=== PATIENT | female | born 1950 | race Caucasian/White ===

== ENCOUNTER 2024-06-24 08:58 | Outpatient (AMB) | payer MEDICARE, OTHER, SELFPAY ==
--- OUTSIDE RECORDS SUMMARY | 2024-06-24 09:06 | XMS_ITS | Clinical Summary ---
Author Organization [facility] [address] [facility] Address [address] [place] [address] Phone Care Team Providers Care Imaging Account Manager Name Role Phone Abhinav Caban MD Primary Care Provider [phone] Allergies Active Allergy Reactions Criticality Noted Date Comments Chlorthalidone 10/03/2023 Chlorthalidone 04/11/2024 Pollen Extracts Other,Sneezing 05/22/2024 Medications verapamil ER (VERELAN) 180 mg 24 hr capsule TAKE 1 CAPSULE AT BEDTIME Do not crush or chew. Active warfarin (COUMADIN) 4 mg tablet TAKE 2 TO 3 TABLETS DAILY DIRECTED BY [facility]. Active amoxicillin (AMOXIL) 500 mg capsule TAKE 4 CAPSULES BY MOUTH 1 HOUR PRIOR TO DENTAL WORK Active levothyroxine (SYNTHROID, LEVOTHROID) 112 mcg tablet Take 1 Tablet by mouth daily. 6 times a week, none on the 7th day Active FERROUS SULFATE ORAL Take by mouth every other day Active enoxaparin (LOVENOX) 60 mg/0.6 mL syringe Active cyanocobalamin (VITAMIN B-12) 1,000 mcg tablet Take by mouth daily. Active calcium carbonate/vitami n D3 (CALCIUM CARBONATE-VITAMI N D PO) Calcium Carbonate-Vit D-Min (Caltrate 600+D Plus Minerals) 600-800 MG-UNIT Chew Tab Take by mouth Active buPROPion XL (WELLBUTRIN XL) 300 mg 24 hr tablet Take 300 mg by mouth every morning. Do not crush, chew, or split. Active cetirizine (ZyrTEC) 10 mg tablet Take 10 mg by mouth daily Active fluticasone propionate (FLONASE) 50 mcg/actuation nasal spray 2 Sprays by Each Nare route daily. Shake gently. Before first use, prime pump. After use, clean tip and replace cap. Active diphenhydrAMINE- acetaminophen (TYLENOL PM) 25-500 mg per tablet Take by mouth as needed Active gabapentin (NEURONTIN) 300 mg capsule Take 1 Capsule by mouth daily Active atorvastatin (LIPITOR) 80 mg tablet Take 80 mg by mouth daily Active polyethylene glycol 3350 (MIRALAX ORAL) Polyethylene Glycol 3350 (MIRALAX OR) Take by mouth as needed Active omeprazole (PriLOSEC) [address] capsule TAKE 1 CAPSULE TWICE A DAY (NEED APPOINTMENT FOR FURTHER REFILLS) 180 capsule 3 04/17/20 24 Active carvediloL (COREG) 3.125 mg tablet Take 1 tablet (3.125 mg total) by mouth 2 (two) times a day with meals. 180 each 1 04/30/20 24 025 Active verapamil ER (VERELAN) 180 mg 24 hr capsule TAKE 1 CAPSULE AT BEDTIME 12/24/19 24 Active warfarin (COUMADIN) 4 mg tablet TAKE 2 TO 3 TABLETS DAILY [facility] 09/24/19 24 Active amoxicillin (AMOXIL) 500 mg capsule TAKE 4 CAPSULES BY MOUTH 1 HOUR PRIOR TO DENTAL WORK 08/21/19 24 Active levothyroxine (SYNTHROID, LEVOTHROID) 112 mcg tablet Take 1 Tablet by mouth daily. 6 times a week, none on the day 08/18/19 24 Active ferrous sulfate (SLOW RELEASE IRON ORAL) Take by mouth every other day. Active enoxaparin (LOVENOX) 60 mg/0.6 mL syringe Inject 60 mg as directed 2 times daily. 07/04/19 24 Active cyanocobalamin (VITAMIN B-12) 1,000 mcg tablet Take by mouth daily. Active [id number] 600 mg calcium- 800 unit-40 mg tablet,chewable Chew. Acti ve buPROPion XL (WELLBUTRIN XL) 300 mg 24 hr tablet Take 300 mg by mouth every morning. Active cetirizine (ZyrTEC) 10 mg tablet Take 10 mg by mouth daily. Active fluticasone propionate (FLONASE) 50 mcg/actuation nasal spray 2 Sprays by Each Nare route daily. Active acetaminophen (TYLENOL EXTRA STRENGTH ORAL) Take by mouth as needed. Active gabapentin (NEURONTIN) 300 mg capsule Take 1 Capsule by mouth daily. Active omeprazole (PriLOSEC) [address] capsule Take 1 Capsule by mouth daily. Active atorvastatin (LIPITOR) 80 mg tablet Take 80 mg by mouth daily. Active polyethylene glycol 3350 (MIRALAX ORAL) Take by mouth as needed. Active carvediloL (COREG) 3.125 mg tabletIndication s:Primary hypertension Take 1 tablet (3.125 mg total) by mouth 2 (two) times a day with meals. 60 each 1 04/10/20 24 Active losartan (COZAAR) 50 mg tablet TAKE 1 TABLET TWICE A DAY 180 tablet 3 05/15/19 25 Active spironolactone (ALDACTONE) 25 mg tablet TAKE ONE-HALF (1/2) TABLET DAILY 45 tablet 3 05/28/19 25 Active spironolactone (ALDACTONE) 25 mg tablet Take by mouth. Take 0.5 Tablets by mouth daily 025 Discontin ued(Dupli emelyn order) spironolactone (ALDACTONE) 25 mg tablet Take 0.5 Tablets by mouth daily. 11/21/19 24 025 Discontin ued(Dupli emelyn order) Active Problems Problem Noted Date Diagnosed Date Abnormal stress echo 04/11/2024 Aortic root dilation 04/11/2024 Chronic anticoagulation 04/11/2024 CKD (chronic kidney disease) 04/11/2024 Disorder of prosthetic aortic valve 04/11/2024 Hyperkalemia 04/11/2024 Iron deficiency anemia due to chronic blood loss 04/11/2024 Mitral stenosis and aortic insufficiency 024 Nonrheumatic aortic valve stenosis 04/11/2024 Palpitations 04/11/2024 Perianal pain 04/11/2024 Primary hypertension 04/11/2024 Non-rheumatic aortic stenosis 03/23/2024 Palpitations 10/03/2023 Overview (03/25/2024): Last Assessment & Plan: 24-hour Holter completed 08/28/2023 revealed normal sinus rhythm with an average heart rate of 82 bpm, rare PACs and PVCs. Her episodes of palpitations correlated with normal sinus rhythm at a rate of 92 bpm and an isolated PVC. The patient reports her palpitations remain unchanged and are no worse or significant. We will continue to follow this; she will return to care as needed if they worsen in the interim. Hyperkalemia 08/27/2023 Iron deficiency anemia due to chronic blood loss 07/16/2023 CKD (chronic kidney disease) 03/15/2023 Overview (03/25/2024): Last Assessment & Plan: Stable on most recent labs completed 09/04/2023. Continue to follow with nephrology as recommended. Aortic root dilation 03/26/2022 Primary hypertension 09/11/2021 Overview (03/25/2024): Last Assessment & Plan: The patient's blood pressure is well-controlled on current medical therapies including reduced dose of losartan and spironolactone as well as verapamil. She will continue to monitor her blood pressures at home and call for any significantly elevated values; she previously brought her blood pressure cuff with her today which correlated well with our readings. We will not make any changes at this time. Mitral stenosis and aortic insufficiency 022 Overview (03/25/2024): and good LV function Disorder of prosthetic aortic valve 02/06/2021 Overview (03/25/2024): Last Assessment & Plan: Gradients have slightly improved as noted above; will repeat echocardiogram as indicated for further evaluation. Nonrheumatic aortic valve stenosis 03/28/2020 Overview (03/25/2024): Last Assessment & Plan: The patient's most recent echocardiogram completed 03/2023 revealed a mechanical Saint Ranjith aortic valve that was well-seated and functioning normally with mean gradient that was improved from previous, though remains elevated. She presents today reporting a sensation of needing to stop and catch her breath with exertion, but this is not consistent from 1 day to the next with the same activity. She is able to walk 1 to 2 miles per day, often uphill, without this symptom or any other exertional symptoms nor symptoms concerning for worsening valvular issues. However, I do perceive a slightly louder murmur on exam today which presents concern for worsening prosthetic valve stenosis. If she has worsening symptoms such as shortness of breath with her usual current activities, lightheadedness or dizziness, or syncope/presyncope she will notify our office at which time we may proceed with repeat echocardiogram. The patient verbalizes understanding and agreement with this plan. Perianal pain 01/31/2018 Abnormal stress echo 08/04/1996 Overview (03/25/2024): Mild ; changed to Moderate in 2005 Encounters Date Type Department Care Team Description 06/23/2024 Anticoagulation - Warfarin Visit [facility] [address] [facility] [address] [place] [address] Byron Urban MD Non-rheumatic aortic stenosis (Primary Dx) 06/16/2024 Anticoagulation - Warfarin Visit [facility] [address] [facility] [address] [place] [address] Byron Urban MD Non-rheumatic aortic stenosis (Primary Dx) 06/09/2024 Anticoagulation - Warfarin Visit [facility] [address] [facility] [address] [place] [address] Byron Urban MD Non-rheumatic aortic stenosis (Primary Dx) 06/02/2024 Anticoagulation - Warfarin Visit [facility] [address] [place] [address] Byron Urban MD Non-rheumatic aortic stenosis (Primary Dx) 05/26/2024 Anticoagulation - Warfarin Visit [facility] [address] [place] [address] Lizbeth Cutler MD Non-rheumatic aortic stenosis (Primary Dx) 05/22/2024 12:28 PM EST Anesthesia Event [facility] Endoscopy [address] [place] [phone] Lizbeth Samuel MD Pierce, Trudy A, CRNA 05/22/2024 11:27 AM EST - 05/22/2024 11:59 PM EST Hospital Encounter [facility] [address] [place] [phone] Lizbeth Samuel MD Farkas, Paul S, MD Pierce, Trudy A, CRNA Anemia, unspecified type; Gastric polyps Discharge Disposition: Home or Self Care 05/18/2024 Anticoagulation - Warfarin Visit [facility] [address] [facility] [address] [place] [phone] Byron Urban MD Non-rheumatic aortic stenosis (Primary Dx) 05/11/2024 2:00 PM EST Office Visit Gastroenterology - [address] [facility] 299 [facility] [address] [place] [phone] Jem Daniels MD Anemia, unspecified type (Primary Dx) 05/11/2024 Anticoagulation - Warfarin Visit [facility] [address] [facility] [address] [place] [phone] Byron Urban MD Non-rheumatic aortic stenosis (Primary Dx) 05/04/2024 Anticoagulation - Warfarin Visit [facility] [address] [place] [phone] Byron Urban MD Non-rheumatic aortic stenosis (Primary Dx) 04/27/2024 Anticoagulation - Warfarin Visit [facility] [address] [place] [phone] Byron Urban MD Non-rheumatic aortic stenosis (Primary Dx) 04/20/2024 Anticoagulation - Warfarin Visit [facility] [address] [place] [phone] Byron Urban MD Non-rheumatic aortic stenosis (Primary Dx) 04/13/2024 Anticoagulation - Warfarin Visit [facility] [address] [place] [address] Byron Urban MD Non-rheumatic aortic stenosis (Primary Dx) 04/10/2024 Telephone [facility] [address] [phone] Byron Urban MD Hypertension 04/06/2024 Anticoagulation - Warfarin Visit [facility] [address] [phone] Byron Urban MD Non-rheumatic aortic stenosis (Primary Dx) 03/30/2024 Anticoagulation - Warfarin Visit [facility] [address] [phone] Byron Urban MD Non-rheumatic aortic stenosis (Primary Dx) from Last 3 Months Surgical History Surgery Date Site/Laterality Comments OTHER SURGICAL HISTORY 2002 PROCEDURE: HISTORY OTHER; COMMENT: Carvical Radiculopathy AORTIC VALVE REPLACEMENT 10/2007 PROCEDURE: HISTORICAL AORTIC VALVE REPL CARPAL TUNNEL RELEASE Bilateral PROCEDURE: HISTORICAL CARPAL TUNNEL REL; COMMENT: 1980 + 1977 OTHER SURGICAL HISTORY 1984 PROCEDURE: WI EXCISION GANGLION WRIST DORSAL/VOLAR RECURRENT OTHER SURGICAL HISTORY 02/2008 PROCEDURE: HISTORICAL SUBTOTAL THYROIDECTOMY OTHER SURGICAL HISTORY 07/02/2011 PROCEDURE: HISTORY OTHER; COMMENT: Lumbar Fusion L4-L5 SHOULDER SURGERY 03/2015 Right PROCEDURE: HISTORICAL SHOULDER SURGERY; COMMENT: Arthroscopy KNEE SURGERY 12/2015 Left PROCEDURE: HISTORICAL KNEE SURGERY; COMMENT: Meniscus tear TOTAL KNEE ARTHROPLASTY 02/04/2018 PROCEDURE: WI ARTHRP KNE CONDYLE&PLATU MEDIAL&LAT COMPARTMENTS COLONOSCOPY ESOPHAGOGASTRODUODENOSCOPY Medical History Medical History Date Comments Panic attacks DX:Panic attacks Anxiety DX:Anxiety Esophageal reflux DX:Esophageal reflux Nerve palsy DX:Nerve palsy; COMMENT: RT Thoracic Osteoarthritis DX:Osteoarthriti s Thoracic aortic aneurysm (CMS/HCC) DX:Thoracic aortic aneurysm (HCC) Papillary carcinoma of thyroid (CMS/HCC) DX:Papillary carcinoma of thyroid (HCC) TIA (transient ischemic attack) 02/28/2009 DX:TIA (transient ischemic attack) Detached vitreous humor, bilateral DX:Detached vitreous humor, bilateral Allergic rhinitis DX:Allergic rh initis Family History Medical History Relation Name Comments Alcohol abuse Father Heart failure Father Lymphoma Father Other: afib Father Other: diverticulitis Father Other: valve replacement Father Hypertension Mother Other: CA Endometrial Mother Other: OA Mother Other: Spinal Stenosis Mother Other: afib Mother Other: kyphosis Mother Relation Name Status Comments Father Mother Alive Social History Tobacco Use Types Packs/Day Years Used Date Smoking Tobacco: Former Smokeless Tobacco: Never Alcohol Use Standard Drinks/Week Comments Yes 0 (1 standard drink = 0.6 oz pur e alcohol) social Interpersonal Safety Answer Date Record ed Physical Abuse 05/22/2024 Verbal Abuse 05/22/2024 Comments Unknown Sex and Gender Information Value Date Recorded Sex Assigned at Female 05/01/2024 1:24 PM EST Legal Sex Female 3:28 AM EST Gender Identity Female 05/01/2024 1:24 PM EST Sexual Orientation Straight 05/22/2024 11 :26 AM EST Obstetrics History Last Filed Vital Signs Vital Sign Reading Time Taken Comments Blood Pressure 133/65 05/22/2024 1:03 PM EST Pulse 70 05/22/2024 1:03 PM EST Temperature 36.5 ??C (97.7 ??F) 05/22/2024 12:[address] Respiratory Rate 14 05/22/2024 1:03 PM EST Oxygen Saturation 100% 05/22/2024 1:03 PM EST Inhaled Oxygen Concentration - - Weight 59 kg (130 lb) 05/22/2024 11:42 AM EST Height 154.9 cm (5' 1 ) 05/22/2024 11:42 AM EST Body Mass Index 24.56 05/22/2024 11:42 AM EST Plan of Treatment Upcoming Encounters Date Type Department Care Team (Late st Contact Info) Description 07/10/2024 7:40 AM EST Office Visit [facility] [address] [facility] [address] [place] [phone] Ange Peterson NP 300 [facility] [address] [place] [address] Health Maintenance Due Date Last Done Comments DTaP,Tdap,and Td Vaccines (1 - Tdap) 09/25/1970 Pneumococcal Vaccine: 50+ Years (1 of 2 - PCV) 09/25/1970 RSV Immunization Patients 60+ Years Old (1 - Risk 60-74 years 1-dose series) 2011 Cholesterol Screening (Lipid Panel) 04/08/2022 Colorectal Cancer Screening: Colonoscopy 04/08/2022 Depression Screening 04/08/2022 Hepatitis C Screening 04/08/2022 Medicare Annual Wellness Visit 04/08/2022 Social Influencers of Health Screening 04/08/2022 Hypertension/CHF/CAD Annual BMP Blood Test 02/16/2025 02/17/2024, 02/17/2024, 02/17/2024, Additional history exists Falls Risk Assessment 05/22/2025 05/22/2024 Breast Cancer Screening 08/12/2025 08/13/19 24, 06/21/2022, 06/14/2021, Additional history exists Osteoporosis Screening (Bone Density Screening) 08/06/2033 08/07/2023, 06/14/2021, 03/19/2019 Zoster Vaccines Completed 06/04/2022, 02/19/2022 Influenza Vaccine Completed 02/01/2024, , 02/28/2022, Additional history exists COVID-19 Vaccine Completed 03/12/2024, , 01/29/2022, Additional history exists HIB Vaccines Aged Out No longer eligi ble based on patient's age to complete this topic HPV Vaccines Aged Out No longer eligi ble based on patient's age to complete this topic Hepatitis A Vaccines Aged Out No long er eligible based on patient's age to complete this topic Hepatitis B Vaccines Aged Out No long er eligible based on patient's age to complete this topic IPV Vaccines Aged Out No longer eligi ble based on patient's age to complete this topic MMR Vaccines Aged Out No longer eligi ble based on patient's age to complete this topic Meningococcal ACWY Vaccine Aged Out N o longer eligible based on patient's age to complete this topic Meningococcal B Vacine Aged Out No lo nger eligible based on patient's age to complete this topic RSV Immunization Patients Under 20 months Aged Out No longer eligible based on patient's age to complete this topic Varicella Vaccines Aged Out No longer eligible based on patient's age to complete this topic Medical Devices Implanted Type Area Electric Meter Repairer Apprentice Device Identifier Shelf Expiration Date Model / Serial / Lot Implants Implants Left: Knee Implants Implants Bilateral: Shoulder Procedures Procedure Name Priority Date/Time Associated Diagnosis Comments PROTHROMBIN TIME WITH INR Routine 06/23/2024 PROTHROMBIN TIME WITH INR Routine 06/16/2024 PROTHROMBIN TIME WITH INR Routine 06/09/2024 PROTHROMBIN TIME WITH INR Routine 06/02/2024 PROTHROMBIN TIME WITH INR Routine 05/26/2024 EGD Routine 05/22/2024 12:42 PM EST Anemia, unspecified type Gastric polyps PROTHROMBIN TIME WITH INR Routine 05/18/2024 CBC WITH AUTO DIFFERENTIAL Routine 05/11/2024 2:35 PM EST Anemia, unspecified type FERRITIN Routine 05/11/2024 2:35 PM EST Iron deficiency anemia due to chronic blood loss IRON AND TIBC Routine 05/11/2024 2:35 PM EST Iron deficiency anemia due to chronic blood loss CBC AND DIFFERENTIAL Routine 05/11/2024 2:35 PM EST Anemia, unspecified type PROTHROMBIN TIME WITH INR Routine 05/11/2024 PROTHROMBIN TIME WITH INR Routine 05/04/2024 PROTHROMBIN TIME WITH INR Routine 04/27/2024 PROTHROMBIN TIME WITH INR Routine 04/20/2024 POC PROTIME INR BLOOD Routine 04/13/2024 Non-rheumatic aortic stenosis PROTHROMBIN TIME WITH INR Routine 04/06/2024 PROTHROMBIN TIME WITH INR Routine 03/30/2024 HM ANNUAL BMP BLOOD TEST Routine 02/17/2024 ARISTIDES SCREENING DIGITAL Routine 08/13/2023 1:18 PM EDT Encounter for screening mammogram for malignant neoplasm of breast [facility] DEXA AXIAL SKELETON Routine 08/07/2023 10:33 AM EDT Encounter for screening for osteoporosis from Last 3 Months or Most Recently Relevant to Health Maintenance Results * Prothrombin time with INR (06/23/2024) Only the most recent of12 resultswithin the time period is included. INR 2.6 Prothrombin Time POC Blood Venous blood specimen / Unknown 06/23/2024 us Historical Provider LAB BLOOD ORDERABLES Rosemary l Result * EGD Anesthesia - MAC; [facility] ENDOSCOPY (05/22/2024 12:42 PM EST) Anatomical Region Laterality Modality Endoscopy 05/22/2024 12:2 2 PM EST Impressions 05/22/2024 12:39 PM EST - Medium-sized hiatal hernia. ? - The examination was otherwise normal. ? - No specimens collected. Recommendation: ?- Patient has a contact number available for ? emergencies. The signs and symptoms of potential ? delayed complications were discussed with the patient. ? Return to normal activities tomorrow. Written ? discharge instructions were provided to the patient. ? - Resume previous diet. ? - Continue present medications. Narrative 05/22/2024 12:39 PM EST [facility] GI Patient Name: Tea Mata Procedure Date: 05/22/2024 12:22 PM Date of : 1950 Age: 73 Gender: Female Note Status: Finalized Attending MD: Jem Daniels MD, Procedure Date No Time: 05/22/2024 Procedure: ? Upper GI endoscopy Indications: ? Surveillance procedure, Follow-up of gastric polyps Providers: ? Jem Daniels MD Referring MD: ?Jem Daniels MD Medicines: ? Monitored Anesthesia Care Complications: ? No immediate complications. Estimated Blood Loss: ? Estimated blood loss: none. Procedure: ? After obtaining informed consent, the endoscope was ? passed under direct vision. Throughout the procedure, ? the patient's blood pressure, pulse, and oxygen ? saturations were monitored continuously. The Olympus ? Gastroscope was introduced through the mouth, and ? advanced to the third part of duodenum. The upper GI ? endoscopy was accomplished without difficulty. The ? patient tolerated the procedure well. Findings: ?A medium-sized hiatal hernia was present. ? The exam was otherwise without abnormality. Procedure Code(s): ? --- Professional --- ? 18759, Esophagogastroduodenoscopy, flexible, ? transoral; diagnostic, including collection of ? specimen(s) by brushing or washing, when performed ? (separate procedure) Diagnosis Code(s): ? --- Professional --- ? K44.9, Diaphragmatic hernia without obstruction or ? gangrene ? K31.7, Polyp of stomach and duodenum CPT copyright 2020 [employer]. All rights reserved. The codes documented in this report are preliminary and upon inspector wire products review may be revised to meet current compliance requirements. MD Jem Adame MD 05/22/2024 12:39:34 PM This report has been signed electronically.Jem Daniels MD Number of Addenda: 0 Note Initiated On: 05/22/2024 12:22 PM Scope In: Scope Out: ? Endoscopy Department at [facility] - [address] [place] [address], ? [place] [address] Procedure Note Jem Daniels MD - 05/22/2024 [facility] GI Patient Name: Tea Mata Procedure Date: 05/22/2024 12:22 PM Date of : 1950 Age: 73 Gender: Female Note Status: Finalized Attending MD: Jem Daniels MD, Procedure Date No Time: 05/22/2024 Procedure: Upper GI endoscopy Indications: Surveillance procedure, Follow-up of gastricpolyps Providers: Jem Daniels MD Referring MD: Jem Daniels MD Medicines: Monitored Anesthesia Care Complications: No immediate complications. Estimated Blood Loss: Estimated blood loss: none. Procedure: After obtaining informed consent, the endoscope was passed under direct vision. Throughout theprocedure, the patient's blood pressure, pulse, and oxygen saturations were monitored continuously. TheOlympus Gastroscope was introduced through the mouth, and advanced to the third part of duodenum. The upperGI endoscopy was accomplished without difficulty. The patient tolerated the procedure well. Findings: A medium-sized hiatal hernia was present. The exam was otherwise without abnormality. Procedure Code(s): --- Professional --- 66418, Esophagogastroduodenoscopy, flexible, transoral; diagnostic, including collection of specimen(s) by brushing or washing, when performed (separate procedure) Diagnosis Code(s): --- Professional --- K44.9, Diaphragmatic hernia without obstruction or gangrene K31.7, Polyp of stomach and duodenum CPT copyright 2020 [employer]. All rights reserved. The codes documented in this report are preliminary and upon inspector wire products reviewmay be revised to meet current compliance requirements. MD Jem Adame MD 05/22/2024 12:39:34 PM This report has been signed electronically.Jem Daniels MD Number of Addenda: 0 Note Initiated On: 05/22/2024 12:22 PM Scope In: Scope Out: Endoscopy Department at [facility] - [address] [place] [phone] IMPRESSION: - Medium-sized hiatal hernia. - The examination was otherwise normal. - No specimens collected. Recommendation: - Patient has a contact number available for emergencies. The signs and symptoms of potential delayed complications were discussed with thepatient. Return to normal activities tomorrow. Written discharge instructions were provided to thepatient. - Resume previous diet. - Continue present medications. us Jem Daniels MD GI~PROCEDURE ORDERABLES Final R esult * (ABNORMAL) CBC auto differential (05/11/2024 2:35 PM EST) [facility] WBC 5.8 4.8 - 10.8 K/mcL LAB HEMETOLOGY METHOD 05/11/2024 6:32 PM [facility] LAB RBC 4.00 3.80 - 4.80 M/mcL LAB HEMETOLOGY METHOD 05/11/2024 6:32 PM [facility] LAB Hemoglobin 11.9 11.5 - 16.0 g/dL LAB HEMETOLOGY METHOD 05/11/2024 6:32 PM [facility] LAB Hematocrit 37.4 35.0 - 47.0 % LAB HEMETOLOGY METHOD 05/11/2024 6:32 PM [facility] LAB MCV 94.4 79.0 - 98.0 FL LAB HEMETOLOGY METHOD 05/11/2024 6:32 PM [facility] LAB MCH 30.1 27.0 - 32.0 pcg LAB HEMETOLOGY METHOD 05/11/2024 6:32 PM [facility] LAB MCHC 31.8(L) 32.0 - 37.0 g/dL LAB HEMETOLOGY METHOD 05/11/2024 6:32 PM [facility] LAB RDW 14.2 11.0 - 15.0 % LAB HEMETOLOGY METHOD 05/11/2024 6:32 PM [facility] Platelets 247 130 - 400 K/mcL LAB HEMETOLOGY METHOD 05/11/2024 6:32 PM [facility] MPV 11.0 7.0 - 11.0 FL LAB HEMETOLOGY METHOD 05/11/2024 6:32 PM [facility] NRBC 0.0 <1.0 % LAB HEMETOLOGY METHOD 05/11/2024 6:32 PM [facility] NRBC Absolute 0.00 <0.10 K/mcL LAB HEMETOLOGY METHOD 05/11/2024 6:32 PM [facility] Neutrophils Relative 53.2 % LAB HEMETOLOGY METHOD 05/11/2024 6:32 PM [facility] Lymphocytes Relative 32.1 % LAB HEMETOLOGY METHOD 05/11/2024 6:32 PM [facility] Monocytes Relative 12.0 % LAB HEMETOLOGY METHOD 05/11/2024 6:32 PM [facility] Eosinophils Relative 1.5 % LAB HEMETOLOGY METHOD 05/11/2024 6:32 PM [facility] Basophils Relative 0.9 % LAB HEMETOLOGY METHOD 05/11/2024 6:32 PM [facility] Immature Granulocytes Relative 0.3 % LAB HEMETOLOGY METHOD 05/11/2024 6:32 PM [facility] Neutrophils Absolute 3.10 1.50 - 7.00 K/mcL LAB HEMETOLOGY METHOD 05/11/2024 6:32 PM [facility] Lymphocytes Absolute 1.87 1.00 - 5.00 K/mcL LAB HEMETOLOGY METHOD 05/11/2024 6:32 PM [facility] Monocytes Absolute 0.70 0.20 - 1.00 K/mcL LAB HEMETOLOGY METHOD 05/11/2024 6:32 PM [facility] Eosinophils Absolute 0.09 0.00 - 0.50 K/mcL LAB HEMETOLOGY METHOD 05/11/2024 6:32 PM [facility] Basophils Absolute 0.05 0.00 - 0.20 K/mcL LAB HEMETOLOGY METHOD 05/11/2024 6:32 PM [facility] Immature Granulocytes Absolute 0.02 0.00 - 0.03 K/mcL LAB HEMETOLOGY METHOD 05/11/2024 6:32 PM [facility] Blood Venous blood specimen / Unknown Venipuncture / Unknown 05/11/2024 2:35 PM EST 05/11/2024 2:35 PM EST us Jem Daniels MD LAB BLOOD ORDERABLES Final Resu lt Performing Organization Address [facility]/ZIP Co de Phone Number [facility] [address] [place] [address], [place] [phone] * Iron and TIBC (05/11/2024 2:35 PM EST) Iron 61 40 - 150 mcg/dL LAB CHEMISTRY METHOD 05/11/2024 6:48 PM EST [facility] TIBC 312 250 - 450 mcg/dL LAB CHEMISTRY METHOD 05/11/2024 6:48 PM EST [facility] Iron Saturation 20 15 - 50 % LAB CHEMISTRY METHOD 05/11/2024 6:48 PM EST [facility] Blood Venous blood specimen / Unknown Venipuncture / Unknown 05/11/2024 2:35 PM EST 05/11/2024 2:35 PM EST us Jem Daniels MD LAB BLOOD ORDERABLES Final Resu lt Performing Organization Address [facility]/ZIP Co de Phone Number [facility] [address] [place] [address], [place] [phone] * Ferritin (05/11/2024 2:35 PM EST) Ferritin 85 8 - 252 ng/mL LAB CHEMISTRY METHOD 05/11/2024 6:48 PM EST [facility] Blood Venous blood specimen / Unknown Venipuncture / Unknown 05/11/2024 2:35 PM EST 05/11/2024 2:35 PM EST us Jem Daniels MD LAB BLOOD ORDERABLES Final Resu lt [facility] [address] [place] [address], * POC Protime INR Blood (04/13/2024) Lot Number INR POC 2.5 Prothrombin Time POC Exp Date Blood 04/13/2024 us Historical Provider POINT OF CARE TEST ENTER/ EDIT ORDERABLES Final Result * Annual BMP Blood Test (02/17/2024) Annual BMP Blood Test Abstracted us Historical Provider HEALTH MAINTENANCE Final Result * ARISTIDES SCREENING DIGITAL (08/13/2023 1:18 PM EDT) Anatomical Region Laterality Modality Mammography 08/07/2023 9:50 AM EDT Narrative 08/13/2023 1:18 PM EDT [facility] Diagnostic Imaging Department [address] [place] [address] Patient: ??TEA MATA ?/Age/Sex: 1950 - 72 - F Unit#: ??[id number] ? Location/Status: ??SPDIMAM/REG CLI ? Mnemonic/Ordering Site: ??DIGSC/SPMAM Ordering Physician: ??DANGELO PARRISH MD Aristides Screening Digital - 08/07/231022 Report Status:Signed ADDENDUM Addendum: The prior report mistakenly listed Abhinav Caban as the ordering physician. However, Dr. Dangelo Parrish was the ordering physician. Addendum Dictated By: ??LIZBETH FARRIS MD Addendum Esigned by: LIZBETH FARRIS MD Dictated: 08/13/2301/28/1312 Signed:08/13/231317 ORIGINAL REPORT EXAM: [facility] Screening Digital EXAM DATE AND TIME: 08/07/2023 10:23 AM HISTORY: ??Annual screening COMPARISON: ??Multiple exams dating back to 2002 TECHNIQUE: Bilateral digital breast tomosynthesis was performed in the CC and MLO projections. Computer aided detection with TuneGO 3D 3.1 was employed. TISSUE DENSITY: b. There are scattered areas of fibroglandular density. FINDINGS: No suspicious masses, grouped microcalcifications, or areas of architectural distortion are seen. The skin and vascularity are unremarkable. IMPRESSION: Stable mammographic appearance of the breasts. ??No evidence of malignancy is seen. A negative mammogram in the presence of a clinically suspicious palpable abnormality does not preclude the possibility of malignancy or alter the indications for biopsy. BI-RADS: ??Category 1: Negative RECOMMENDATION(S): 1: Routine screening mammogram BILATERAL in 1 year. 3341F, 7025F Dictating Physician: ??LIZBETH FARRIS MD Electronically Signed by: ??LIZBETH FARRIS MD Dic Date/Time: ??08/07/23 1149 Sign date/Time: ??08/07/23 1149 Procedure Note Lizbeth Farris MD - 12/23/2023 [facility] Diagnostic Imaging Department [address] [place], [place] [id number] Patient: TEA MATA Allegra /Age/Sex: 1950 - 72 - F Unit#: [id number] Location/Status: SPDIMAM/REG CLI Mnemonic/Ordering Site: [facility] Ordering Physician: DANGELO PARRISH MD [facility] Screening Digital - 08/07/23 - 1023 Report Status:Signed ADDENDUM Addendum: The prior report mistakenly listed Abhinav Caban as the ordering physician. However, Dr. Dangelo Parrish was the ordering physician. Addendum Dictated By: LIZBETH FARRIS MD Addendum Esigned by: LIZBETH FARRIS MD Dictated: 08/13/2301/28/1312 Signed:08/13/231317 ORIGINAL REPORT EXAM: [facility] Screening Digital EXAM DATE AND TIME: 08/07/2023 10:23 AM HISTORY: Annual screening COMPARISON: Multiple exams dating back to 2002 TECHNIQUE: Bilateral digital breast tomosynthesis was performed in the CCand MLO projections. Computer aided detection with TuneGO 3D 3.1was employed. TISSUE DENSITY: b. There are scattered areas of fibroglandular density. FINDINGS: No suspicious masses, grouped microcalcifications, or areas ofarchitectural distortion are seen. The skin and vascularity are unremarkable. IMPRESSION: Stable mammographic appearance of the breasts. No evidence of malignancyis seen. A negative mammogram in the presence of a clinically suspicious palpable abnormality does not preclude the possibility of malignancy or alter the indications for biopsy. BI-RADS: Category 1: Negative RECOMMENDATION(S): 1: Routine screening mammogram BILATERAL in 1 year. 3341F, 7025F Dictating Physician: LIZBETH FARRIS MD Electronically Signed by: LIZBETH FARRIS MD Dic Date/Time: 08/07/23 1149 Sign date/Time: 08/07/23 114 us Dangelo Parrish MD IMG BI PROCEDURES Final Res ult * ARISTIDES DEXA AXIAL SKELETON (08/07/2023 10:33 AM EDT) Anatomical Region Laterality Modality Mammography 08/07/2023 9:50 AM EDT Narrative 08/07/2023 10:33 AM EDT [facility] Diagnostic Imaging Department [address] [place], [place] [id number] Patient: ??TEA MATA ?/Age/Sex: 1950 - Unit#: ??[id number] ? Location/Status: ??SPDIMAM/REG CLI ? Mnemonic/Ordering Site: ??MAMDEXAAX/SPMAM Ordering Physician: ??DANGELO PARRISH MD [facility] Dexa Axial Skeleton - 08/07/23 - 1027 Report Status:Signed HISTORY: ??The patient is a 72-year-old postmenopausal female with clinical concern for metabolic bone disease. FINDINGS: ??Dual energy x-ray absorptiometry of the lumbar spine and femurs is performed. The mean bone mineral density at L1-2 is 1.052 gm/cm2 which is 90% of that of young normals and 113% of that of age matched controls. This yields a T- score of -0.9 and a Z-score of 1.0 and there is therefore no evidence of osteoporosis or osteopenia here. The mean bone mineral density of the femurs bilaterally is 0.694 gm/cm2 which is 69% of that of young normals and 88% of that of age matched controls. ??This yields a T-score of -2.5 and a Z-score of -0.7 which is diagnostic of osteoporosis. IMPRESSION: 1. Osteoporosis. ??There has been a decrease of 1.6% in bone mineral density in the lumbar spine since the prior examination of 06/14/2021. ??There has been a decrease of 8.0% in bone mineral density in the right femur and a decrease of 4.7% in bone mineral density in the left femur. 2. FRAX analysis yields a 10-year probability of major osteoporotic fracture of 11.3% and a 10-year probability of hip fracture of 2.3%. Code 17454 Dictating Physician: ??MAYTE POWERS MD Electronically Signed by: ??MAYTE POWERS MD Dic Date/Time: ??08/07/23 1032 Sign date/Time: ??08/07/23 1033 Procedure Note Mayte Powers MD - 12/23/2023 [facility] Diagnostic Imaging Department [address] [place] [address] Patient: TEA MATA /Age/Sex: 1950 - 72 - F Unit#: [id number] Location/Status: [facility] Ordering Physician: DANGELO PARRISH MD [facility] Dexa Axial Skeleton - 08/07/23 - 1027 Report Status:Signed HISTORY: The patient is a 72-year-old postmenopausal female withclinical concern for metabolic bone disease. FINDINGS: Dual energy x-ray absorptiometry of the lumbar spine and femursis performed. The mean bone mineral density at L1-2 is 1.052 gm/cm2 which is90% of that of young normals and 113% of that of age matched controls. Thisyields a T- score of -0.9 and a Z-score of 1.0 and there is therefore no evidence of osteoporosis or osteopenia here. The mean bone mineral density of the femurs bilaterally is 0.694 gm/pc9ujxqd is 69% of that of young normals and 88% of that of age matched controls.This yields a T-score of -2.5 and a Z-score of -0.7 which is diagnostic of osteoporosis. IMPRESSION: 1. Osteoporosis. There has been a decrease of 1.6% in bone mineraldensity in the lumbar spine since the prior examination of 06/14/2021. There has markus decrease of 8.0% in bone mineral density in the right femur and a decreaseof 4.7% in bone mineral density in the left femur. 2. FRAX analysis yields a 10-year probability of major osteoporoticfracture of 11.3% and a 10-year probability of hip fracture of 2.3%. Code 29085 Dictating Physician: MAYTE POWERS MD Electronically Signed by: MAYTE POWERS MD Dic Date/Time: 08/07/23 1032 Sign date/Time: 08/07/23 1033 Dangelo Parrish MD IMG BI PROCEDURES Final Res ult from Last 3 Months or Most Recently Relevant to Health Maintenance Insurance MEDICARE [facility] MEDICARE [facility] Care Teams Imaging Account Manager Relationship Specialty Start Date End Date Abhinav Caban MD [address] [place] [id number] PCP - General Internal Medicine 02/01/21
--- OUTSIDE RECORDS SUMMARY | 2024-06-24 09:06 | XMS_ITS | Clinical Summary ---
Author Organization [facility] Address [address] [place] [address] Phone Care Team Providers Care Communications Engineer Name Role Phone Abhinav Caban MD Primary Care Provider [phone] Allergies Active Allergy Reactions Criticality Noted Date Comments Azithromycin 08/16/2023 Other Reaction(s): stomach pains Chlorthalidone 07/02/2023 Other Reaction(s): Hyponatremia Pollen Extract 08/16/2023 Other Reaction(s): seasonal, watery eyes, post nasal drip Medications acetaminophen (TYLENOL) 325 MG tablet Take 975 mg by mouth 09/27/2021 Active atorvastatin (LIPITOR) 80 MG tablet 01/26/2021 Active buPROPion XL (WELLBUTRIN XL) 300 MG 24 hr tablet 12/28/2021 Active Calcium Carb-Cholecalci ferol 500-2.5 MG-MCG chewable tablet Chew 1 tablet 01/26/2021 Active Cetirizine HCl (ZyrTEC ALLERGY) 10 MG capsule 10 mg Active fluticasone (FLONASE) 50 MCG/ACT nasal spray Flonase Allergy Relief 01/26/2021 Active Levoxyl 112 MCG tablet Take 112 mcg by mouth every morning 07/02/2023 Active losartan (COZAAR) 50 MG tablet Take 50 mg by mouth in the morning and 50 mg in the evening. 04/09/2023 Active omeprazole (PriLOSEC) [address] capsule Take 40 mg by mouth in the morning and 40 mg in the evening. 04/22/2023 Active spironolactone (ALDACTONE) 25 MG tablet Take 12.5 mg by mouth 1 (one) time each day 07/16/2023 Active verapamil SR (CALAN-SR) 180 MG CR tablet 180 mg every night 06/26/2023 Active warfarin (COUMADIN) 4 MG tablet Take 4 mg by mouth 01/11/2022 Active gabapentin (NEURONTIN) 300 MG capsule Take 300 mg by mouth in the morning. 12/30/2021 Active cyanocobalamin (VITAMIN B-12) 1000 MCG tablet Take 1,000 mcg by mouth 1 (one) time each day Active ferrous sulfate 325 (65 Fe) MG tablet Take 325 mg by mouth every other day Slow release Active Active Problems Problem Noted Date Diagnosed Date Malignant neoplasm of thyroid gland 07/02/2023 Overview (08/16/2023): 2008: 1.5x1.1x 0.9 cm papillary CA, not encapsulated, no ETE or LVI, small clusters of papillary CA in delph. node, TBS showed uptake in thyroid bed & right posterio/lateral neck, 1% uptake; given 150 mCi I 131; TG 13 prior to treatment; was 0.7 in 2008 after thyrogen, has been undetectable since; last neck u/s 2021 w/o concerning finding Last Assessment & Plan: She has had no evidence of residual or recurrent dx, s/p total thyroidectomy & CAMPA in 2007. Will include thyroglobulin with next labs as was not done as ordered with recent labs. Will follow exam & labs for now, do not think needs ongoing ultrasounds given low likely of recurrence/how long it has been since her surgery/CAMPA. Postoperative hypothyroidism 07/02/2023 Overview (08/16/2023): Last Assessment & Plan: Her TSH was very high during recent hospitalization. Will call to determine when it was done in relation to when she was admitted as often does not get rx @ appropriate time in relation to food/other medications when in the hospital. She reports not missing any doses @ home when she was not feeling well leading up to the hospitalization. May have been taking rx a bit too close to iron which could have interfered w/ the absorption. Her recent labs showed high normal TSH, it is really too soon to see full impact of dose adjustment. I have advised her to be sure to leave at least 3-4 hrs between LT4 & iron. If feeling ok to repeat labs in 6 weeks, sooner prn symptoms of thyroid dysfunction. To call if does not hear from me with results within 1-2 weeks of having labs done. Osteoporosis 01/15/2022 Family History Medical History Relation Comments Cancer Father Cancer Mother Relation Status Comments Father Mother Social History Tobacco Use Types Packs/Day Years Used Date Smoking Tobacco: Never Passive Smoke Exposure: Never Smokeless Tobacco: Never Tobacco Cessation:Counseling Given: No Alcohol Use Standard Drinks/Week Comments Never 0 (1 standard drink = 0.6 oz pur e alcohol) Comments Unknown Sex and Gender Information Value Date Recorded Sex Assigned at Not on file Legal Sex Female 8:06 AM EST Gender Identity Not on file Sexual Orientation Not on file Last Filed Vital Signs Vital Sign Reading Time Taken Comments Blood Pressure 140/80 03/23/2024 3:48 PM EST Pulse 80 03/23/2024 3:48 PM EST Temperature - - Respiratory Rate - - Oxygen Saturation 98% 09/23/2023 2:53 PM EDT Inhaled Oxygen Concentration - - Weight 58.1 kg (128 lb) 03/23/2024 3:48 PM EST Height 154.9 cm (5' 1 ) 09/23/2023 2:53 PM EDT Body Mass Index 24.19 09/23/2023 2:53 PM EDT Plan of Treatment Upcoming Encounters Date Type Department Care Team (Late st Contact Info) Description 03/22/2025 2:15 PM EST Office Visit [facility] [address] [phone] Xavier Lemon MD [address] [address] Health Maintenance Due Date Last Done Comments Breast Cancer Screening 1950 Pneumococcal Vaccine: 65+ Ye ars (1 of 2 - PCV) 09/25/1957 Colorectal Cancer Screening: Annual FOBT 09/25/2000 Colorectal Cancer Screening: Colonoscopy 09/25/2000 Colorectal Cancer Screening: Sigmoidoscopy 09/25/2000 Influenza Vaccine (#1) 2024 Hepatitis B Vaccine Aged Out No longe r eligible based on patient's age to complete this topic Insurance MEDICARE [facility] MEDICARE [facility] Care Teams Communications Engineer Relationship Specialty Start Date End Date Abhinav Caban MD [address] PCP - General Internal Medicine 06/05/23
--- OUTSIDE RECORDS SUMMARY | 2024-06-24 09:07 | XMS_ITS | Encounter Summary ---
Author Organization [facility] Address [address] [place] [address] Care Team Providers Care Argon Tester Name Role Phone Abhinav Caban MD Primary Care Provider [phone] Encounter Details Date Type Department Care Team (Latest Contact Info) Description 06/23/2024 Anticoagulation - Warfarin Visit [facility] - [facility] [address] [phone] Byron Urban MD [address] [address] Non-rheumatic aortic stenosis (Primary Dx) Social History Tobacco Use Types Packs/Day Years [...] Orientation Straight 05/22/2024 11 :26 AM EST documented as of this encounter Progress Notes * Elkin Pandey MA - 06/23/2024 8:15 AM EST Patient aware of instructions documented in this encounter Plan of Treatment Upcoming Encounters Date Type Department Care Team (Late st Contact Info) Description 07/10/2024 7:40 AM EST Office Visit [facility] - [address] [place] [address] Ange Peterson NP [address] [place] [address] documented as of this encounter Procedures Procedure Name Priority Date/Time Associated Diagnosis Comments PROTHROMBIN TIME WITH INR Routine 06/23/2024 documented in this encounter Results * Prothrombin time with INR (06/23/2024) INR 2.6 Prothrombin Time POC Blood Venous blood specimen / Unknown 06/23/2024 us Historical Provider LAB BLOOD ORDERABLES Rosemary l Result documented in this encounter Visit Diagnoses Diagnosis Non-rheumatic aortic stenosis- Primary documented in this encounter Care Teams Argon Tester Relationship Specialty Start Date End Date Abhinav Caban MD [address] [place] [address] PCP - General Internal Medicine 02/01/21 documented as of this encounter
--- OUTSIDE RECORDS SUMMARY | 2024-06-24 09:07 | XMS_ITS | Encounter Summary ---
Author Organization [facility] Address [address] [place] [address] Care Team Providers Care Echocardiography Radiology Technologist Name Role Phone Abhinav Caban MD Primary Care Provider [phone] Encounter Details Date Type Department Care Team (Latest Contact Info) Description 05/26/2024 Anticoagulation - Warfarin Visit [facility] - [facility] [address] [facility] [address] [place] [phone] Jonathan Cutler MD [address] [place] [address] Non-rheumatic aortic stenosis (Primary Dx) Social History [...] Progress Notes * Elkin Pandey MA - 05/26/2024 10:18 AM EST Patient aware of instructions documented in this encounter Plan of Treatment Upcoming Encounters Date Type Department Care Team (Late st Contact Info) Description 07/10/2024 7:40 AM EST Office Visit [facility] - [address] [place] [address] Ange Peterson NP [address] [place] [address] documented as of this encounter Procedures Procedure Name Priority Date/Time Associated Diagnosis Comments PROTHROMBIN TIME WITH INR Routine 05/26/2024 documented in this encounter Results * Prothrombin time with INR (05/26/2024) INR 2.7 Prothrombin Time POC Blood Venous blood specimen / Unknown 05/26/2024 us Historical Provider LAB BLOOD ORDERABLES Rosemary l Result documented in this encounter Visit Diagnoses Diagnosis Non-rheumatic aortic stenosis- Primary documented in this encounter Care Teams Echocardiography Radiology Technologist Relationship Specialty Start Date End Date Abhinav Caban MD [address] [place] [address] PCP - General Internal Medicine 02/01/21 documented as of this encounter
--- OUTSIDE RECORDS SUMMARY | 2024-06-24 09:07 | XMS_ITS | Encounter Summary ---
Author Organization [facility] Address [address] [place] [address] Care Team Providers Care Electrocardiogram Technician Name Role Phone Abhinav Caban MD Primary Care Provider [phone] Encounter Details Date Type Department Care Team (Latest Contact Info) Description 06/16/2024 Anticoagulation - Warfarin Visit [facility] - [facility] [address] [facility] [address] [place] [phone] Byron Urban MD [address] [place] [address] Non-rheumatic aortic stenosis (Primary Dx) Social History [...] as of this encounter Progress Notes * Shivani Chua MA - 06/16/2024 10:12 AM EST I reviewed Warfarin instructions with patient. documented in this encounter Plan of Treatment Upcoming Encounters Date Type Department Care Team (Late st Contact Info) Description 07/10/2024 7:40 AM EST Office Visit [facility] - [address] [place] [address] Ange Peterson NP [address] [place] [address] documented as of this encounter Procedures Procedure Name Priority Date/Time Associated Diagnosis Comments PROTHROMBIN TIME WITH INR Routine 06/16/2024 documented in this encounter Results * Prothrombin time with INR (06/16/2024) INR 2.5 EXTERNAL L AB (NON-INTERFACE D) Prothrombin Time POC EXTERNAL LAB (NON-INTERFACE D) Blood Venous blood specimen / Unknown 06/16/2024 Byron Urban MD LAB BLOOD ORDERABLES Final Resu lt EXTERNAL LAB (NON-INTERFACED) documented in this encounter Visit Diagnoses Diagnosis Non-rheumatic aortic stenosis- Primary documented in this encounter Care Teams Electrocardiogram Technician Relationship Specialty Start Date End Date Abhinav Caban MD [address] [place] [id number] PCP - General Internal Medicine 02/01/21 documented as of this encounter
--- OUTSIDE RECORDS SUMMARY | 2024-06-24 09:07 | XMS_ITS | Clinical Summary ---
Author Organization [facility] Address [address] [place], [place] [id number] Care Team Providers Care Filling Layer Up Name Role Phone Abhinav Caban MD Primary Care Provider [phone] Allergies No known active allergies Medications Medication Sig Dispensed Refills Start Date End Date Status fluticasone (FLONASE) 50 MCG/ACT nasal spray Flonase Allergy Relief 0 Active verapamil (VERELAN PM) 240 MG 24 hr capsule Take 240 mg by mouth every night at bedtime. 0 10/20/2015 Active Cetirizine HCl (ZyrTEC ALLERGY) 10 MG CAPS 10 mg 2 (two) times a day. 0 Active Polyethylene Glycol 3350 (MIRALAX PO) Take by mouth. 0 Act ted buPROPion (WELLBUTRIN XL) 300 MG 24 hr tablet 0 12/28/2021 Active Cholecalciferol (Vitamin D3) 125 MCG/0.5ML LIQD Take by mouth. 0 Active cyclobenzaprine (FLEXERIL) 5 MG tablet Take 1 tablet (5 mg total) by mouth. 0 Active levothyroxine (SYNTHROID) tablet 88 mcg Levoxyl 88 mcg tablet 0 01/26/2021 Active metoprolol succinate (TOPROL-XL) 24 hr tablet 50 mg Toprol XL 50 mg tablet,extended release 0 10/20/2015 Active omeprazole (PriLOSEC) 40 MG capsule omeprazole 40 mg capsule,delayed release 0 Active warfarin (COUMADIN) 4 MG tablet 0 01/11/2022 Active gabapentin (NEURONTIN) 300 MG capsule 2 capsules (600 mg total). 0 12/30/2021 Active atorvastatin (LIPITOR) tablet 80 mg 0 11/17/2021 Active cyanocobalamin (VITAMIN B12) 1000 MCG/ML injection ADMINISTER 1 ML UNDER THE SKIN ONCE A MONTH 0 11/16/2022 Active cetirizine (ZyrTEC) 10 MG tablet Take 1 tablet (10 mg total) by mouth. 0 01/26/2021 Active Calcium Carbonate-Vit D-Min (Caltrate 600+D Plus Minerals) 600-800 MG-UNIT CHEW Chew by mouth. 0 Active Ferrous Sulfate (IRON SLOW RELEASE PO) Take by mouth every other day. 0 Active Active Problems Problem Noted Date Diagnosed Date Osteoporosis 01/15/2022 Social History Tobacco Use Types Packs/Day Years Used Date Smoking Tobacco: Never Assessed Sex and Gender Information Value Date Recorded Sex Assigned at Not on file Gender Identity Not on file Sexual Orientation Not on file Job Start Date Occupation Industry Not on file Not on file Not on file Last Filed Vital Signs Vital Sign Reading Time Taken Comments Blood Pressure 164/74 03/06/2023 9:09 AM EDT Pulse 62 03/06/2023 9:09 AM EDT Temperature 37.1 ??C (98.8 ??F) 03/06/2023 9:09 AM ED T Respiratory Rate 18 11/23/2022 2:40 PM EDT Oxygen Saturation 100% 03/06/2023 9:09 AM EDT Inhaled Oxygen Concentration - - Weight 59.8 kg (131 lb 12.8 oz) 03/06/2023 9:09 AM EDT Height 155.2 cm (5' 1.1 ) 03/06/2023 9:09 AM EDT Body Mass Index 24.82 03/06/2023 9:09 AM EDT Plan of Treatment Health Maintenance Due Date Last Done Comments Hepatitis C Screening 1950 COVID-19 Vaccine (#1) 03/28/1952 Depression Screening 1963 Preventative Health Evaluation 09/25/1969 Colon Cancer Screening (Colonoscopy) 09/25/1996 Breast Cancer Screening (Mammogram) 09/25/2001 Shingrix-Zoster Vaccine (1 of 2) 09/25/2001 Fall Risk Assessment 09/25/2016 Osteoporosis Screening (DEXA Scan) 09/25/2016 Influenza Vaccine (#1) 2024 , 01/18/2020, 02/25/2019, Additional history exists DTap / Tdap / Td (2 - Td or Tdap) 01/27/2025 01/27/2015 RSV Adult > 60+ Yrs or (1 - 1-dose 75+ series) 09/25/2026 Pneumococcal Vaccine Completed 02/09/2019, 01/22/20 17 Hepatitis B Vaccines Aged Out No long er eligible based on patient's age to complete this topic RSV Ped < 20 months Aged Out No longe r eligible based on patient's age to complete this topic Care Teams Filling Layer Up Relationship Specialty Start Date End Date Abhinav Caban MD [address] [place] [id number] PCP - General Internal Medicine 01/16/22
--- OUTSIDE RECORDS SUMMARY | 2024-06-24 09:07 | XMS_ITS | Encounter Summary ---
Author Organization [facility] Address [address] [place] [address] Care Team Providers Care Electric Installer Name Role Phone Abhinav Caban MD Primary Care Provider [phone] Encounter Details Date Type Department Care Team (Latest Contact Info) Description 06/09/2024 Anticoagulation - Warfarin Visit [facility] - [address] [phone] Byron Urban MD [address] [address] Non-rheumatic aortic stenosis (Primary Dx) Social History [...] Progress Notes * Elkin Pandey MA - 06/09/2024 8:44 AM EST Patient aware of instructions documented in this encounter Plan of Treatment Upcoming Encounters Date Type Department Care Team (Late st Contact Info) Description 07/10/2024 7:40 AM EST Office Visit [facility] - [address] [place] [phone] Ange Peterson NP [address] [place] [address] documented as of this encounter Procedures Procedure Name Priority Date/Time Associated Diagnosis Comments PROTHROMBIN TIME WITH INR Routine 06/09/2024 documented in this encounter Results * Prothrombin time with INR (06/09/2024) INR 2.6 Prothrombin Time POC Blood Venous blood specimen / Unknown 06/09/2024 us Historical Provider LAB BLOOD ORDERABLES Rosemary l Result documented in this encounter Visit Diagnoses Diagnosis Non-rheumatic aortic stenosis- Primary documented in this encounter Care Teams Electric Installer Relationship Specialty Start Date End Date Abhinav Caban MD [address] [place] [id number] PCP - General Internal Medicine 02/01/21 documented as of this encounter
--- OUTSIDE RECORDS SUMMARY | 2024-06-24 09:07 | XMS_ITS | Encounter Summary ---
Author Organization [facility] Address [address] [place] [address] Care Team Providers Care System Administration Advisor Name Role Phone Abhinav Caban MD Primary Care Provider [phone] Encounter Details Date Type Department Care Team (Latest Contact Info) Description 06/02/2024 Anticoagulation - Warfarin Visit [facility] - [facility] [address] [facility] [address] [place] [phone] Byron Urban MD [address] [place] [address] Non-rheumatic aortic stenosis (Primary Dx) Social History [...] Progress Notes * Elkin Pandey MA - 06/02/2024 8:54 AM EST Patient aware of instructions documented in this encounter Plan of Treatment Upcoming Encounters Date Type Department Care Team (Late st Contact Info) Description 07/10/2024 7:40 AM EST Office Visit [facility] - [address] [place] [phone] Ange Peterson NP [address] [place] [address] documented as of this encounter Procedures Procedure Name Priority Date/Time Associated Diagnosis Comments PROTHROMBIN TIME WITH INR Routine 06/02/2024 documented in this encounter Results * Prothrombin time with INR (06/02/2024) INR 2.6 Prothrombin Time POC Blood Venous blood specimen / Unknown 06/02/2024 us Historical Provider LAB BLOOD ORDERABLES Rosemary l Result documented in this encounter Visit Diagnoses Diagnosis Non-rheumatic aortic stenosis- Primary documented in this encounter Care Teams System Administration Advisor Relationship Specialty Start Date End Date Abhinav Caban MD [address] [place] [id number] PCP - General Internal Medicine 02/01/21 documented as of this encounter
--- OUTSIDE RECORDS SUMMARY | 2024-06-24 09:07 | XMS_ITS | Data Portability ---
Author Organization [place] [facility], [facility] Address [address] [place] [address] Care Team Providers Care General Repairer Name Role Phone TRE MORGAN Referring Provider TRE MORGAN Primary Care Provider Assessment Encounter Date Assessment Date Assessment LastModified by Organization Details LastModified Time 04/30/2024 04/30/2024 A: Patient had decreased flexion PROM today. Increased reps with shoulder flexion AROM supine and scap squeezes. Patient needed cueing with ER with cane today. P: Increase reps with scap stab N/V. Not available 04/30/2024 10:17:14 05/05/2024 05/05/2024 A: Introduced light strengthening via hand weights and bands this visit with pt given HEP and bands with good understanding of frequency, duration, and progression of exercises for maximal functional gains. P: Continue progressing as tolerated. [email or web address] Not available 05/11/2024 08:17:31 05/14/2024 05/14/2024 A: Pt with excellent PROM and AROM, verbalizes desire for improved flexion. P: Decrease to 1x/week x 2. [email or web address] Not available 05/14/2024 11:30:23 05/21/2024 05/21/2024 A: Pt d/c to (I) HEP with good understanding of continuation of exercises for further functional gains. P: D/c to (I) HEP. [email or web address] Not available 05/21/2024 11:21:51 Plan of Treatment Reminders Order Date Submit Date Provider Last Modified By Organization Details Last Modified Time Details Appointments RECHECK 15 2024 09:30A Jose Soto PA-C Not available Not available Not available Lab None recorded . Referral None recorded . Procedures None recorded . Surgeries None recorded . Imaging XR, shoulder , 2 or more view - L rTSA 3 view rm 215 2024 025 [email or web address] [facility], [address], [facility], [place], [address], 05/27/2024 10:56:51 Medication Orders None recorded . Patient TargetsNo targets recorded. Patient InstructionsNo instructions recorded. Reason for Referral None Reported. Results Created Date Observation Date Name Description Value Unit Range Abnormal Flag Note LastModifiedBy Organization Detail LastModifiedTime 05/15/19 25 05/15/2024 XR, shoul shy, 2 or more view http:/ [email or web address] ?Encry pted=s hAaTro YD8dLq bEUv6g %2BXZw aYqtaq 0bqfl% 2Fg9IQ a4ajBk vP9nXo QUaueC m3YtLR FvZlgJ JJ8mAn HZtai3 2v3857 AC0Kqb nWNV6u vKiQtr MwF INTERFACE [facility] [address] [facility] [address], [address], 05/15/2024 11:24:13 05/15/19 25 05/15/2024 XR, shoul shy, 2 or more view http:/ [email or web address] ?Encry pted=s hAaTro YD8dLq bEUv6g %2BXZw aYqtaq 0bqfl% 2Fg9IQ a4ajBk vP9nXo QUaueC m3YtLR FvZlgJ JJ8mAn HZtai3 9z3830 AC0Kqb nWNV6u vKiQtr MwF INTERFACE [facility] [address] [facility] [address], [place], [address], 05/15/2024 11:24:15 Result Notes None recorded. Procedures Surgical History Date Name Laterality Status Provider Name and Address Organization Details Recorded Time 4 24465 Therapeutic Exercise (1:1) completed Nile Trinh, PT [address], [place], [address], [facility] 04/30/2024 10:12:46 4 59370: Manual therapy completed Nile Trinh, PT [address], [place], [address], [facility] 04/30/2024 10:08:06 4 78216 Therapeutic Exercise (1:1) completed Carri Cm, PT [address], [place], [address], [facility] 04/27/2024 09:11:30 4 70052: Manual therapy completed Carri Cm, PT [address], [place], [address], [facility] 04/27/2024 09:11:30 4 58171 Therapeutic Exercise (1:1) completed Marianela Arce, LAWN CARE SPECIALIST [address], [place], [address], [facility] 04/23/2024 13:48:04 4 08476: Manual therapy completed Marianela Arce, LAWN CARE SPECIALIST [address], [place], [address], [facility] 04/23/2024 13:48:04 4 43328 Therapeutic Exercise (1:1) completed Carri Cm, PT [address], [place], [address], [facility] 04/20/2024 13:29:42 4 25719: Manual therapy completed Carri Cm, PT [address], [place], [address], [facility] 04/20/2024 13:29:42 4 18608 Therapeutic Exercise (1:1) completed Carri Cm, PT [address], [place], [address], [facility] 04/15/2024 12:34:13 4 23517: Manual therapy completed Carri Cm, PT [address], [place], [address], [facility] 04/15/2024 12:34:13 4 77773 Therapeutic Exercise (1:1) completed Marianelasa Arce, LAWN CARE SPECIALIST [address], [place], [address], [facility] 04/14/2024 16:54:54 4 29827: Manual therapy completed Marianelasa Arce, LAWN CARE SPECIALIST [address], [place], [address], [facility] 04/14/2024 16:53:18 4 99385 Therapeutic Exercise (1:1) completed Marianelasa Arce, LAWN CARE SPECIALIST [address], [place], [address], [facility] 04/09/2024 10:39:54 4 72970: Manual therapy completed Marianela Arce, LAWN CARE SPECIALIST [address], [place], [address], [facility] 04/09/2024 10:39:54 4 21443 Therapeutic Exercise (1:1) completed Marianela Arce, LAWN CARE SPECIALIST [address], [place], [address], [facility] 04/08/2024 11:12:04 4 14147: Manual therapy completed Marianela Arce, LAWN CARE SPECIALIST [address], [place], [address], [facility] 04/08/2024 11:12:04 4 50339 Therapeutic Exercise (1:1) completed Marianelasa Arce, LAWN CARE SPECIALIST [address], [place], [address], [facility] 03/31/2024 16:35:04 4 30018: Manual therapy completed Marianela Arce, LAWN CARE SPECIALIST [address], [place], [address], [facility] 03/31/2024 16:35:04 4 77032 Therapeutic Exercise (1:1) completed Carri Wing, PT [address], [place], [address], [facility] 03/25/2024 11:09:10 4 83513: Manual therapy completed Carri Wing, PT [address], [place], [address], [facility] 03/24/2024 12:56:59 4 94961 Therapeutic Exercise (1:1) completed Carri Wing, PT [address], [place], [address], [facility] 03/23/2024 12:50:18 4 23768: Manual therapy completed Carri Wing, PT [address], [place], [address], [facility] 03/20/2024 13:11:34 4 54138 Therapeutic Exercise (1:1) completed Carri , PT [address], [place], [address], [facility] 03/19/2024 14:11:36 4 58522: Manual therapy completed Carri Wing, PT [address], [place], [address], [facility] 03/19/2024 14:11:37 4 08091: Low complexity PT Eval completed Carri Wing, PT [address], [place], [address], [facility] 03/14/2024 14:22:03 4 G8420 BMI Normal, No Follow-Up Plan Required completed Carri Wing, PT [address], [place], [address], [facility] 03/14/2024 14:22:14 4 G8427 Current Medication Documented completed Carri Cm, PT [address], [place], [address], [facility] 03/14/2024 14:22:05 4 Sports Shoulder completed Shoshana Moreno MD [address], [place], [address], [facility] 10/09/2023 14:05:21 Imaging Results Imaging Date Name Status LastModified by Organiz ation Details LastModified Time 05/15/2024 XR, shoulder, 2 or more view completed INTERFACE [facility] [address], [place], [address], 05/15/2024 11:24:13 05/15/2024 XR, shoulder, 2 or more view completed INTERFACE [facility] [address], [place], [address], 05/15/2024 11:24:15 Procedure Notes None recorded. Medical Equipment None Reported. Allergies Allergen ID Allergen Name Allergen Category Reaction Reaction Severity Criticality Documentation Date Start Date Code Code System Note Provider Name and Address Organization Details Recorded Time 016809 chlorthal idone medicatio n other severe Not available 10/09/20232023 2409 [facility] 4 09:47:49 Medications Name Sig Start Date Stop Date Status Note LastModified by Organization Details LastModified Time losartan 50 mg tablet active Not Available Not Available No t Available amoxicillin 500 mg capsule TAKE 4 CAPSULES BY MOUTH ONE HOUR PRIOR TO DENTAL WORK active Not Available Not Available No t Available atorvastati n 80 mg tablet active Not Available Not Available Not Available Levoxyl 88 mcg tablet 10/08 completed Not Available Not Available Not Available doxycycline hyclate 100 mg capsule TAKE ONE CAPSULE BY MOUTH TWICE A DAY FOR 10 DAYS 10/08 completed Not Available Not Available Not Available metoprolol succinate ER 50 mg tablet,exte nded release 24 hr 01/29 completed Not Available Not Available Not Available verapamil ER (SR) 180 mg tablet,exte nded release active Not Available Not Available Not Available chlorthalid one 50 mg tablet TAKE ONE TABLET BY MOUTH EVERY DAY 10/08 completed Not Available Not Available Not Available omeprazole 40 mg capsule,del ayed release active Not Available Not Available Not Available acetaminoph en 500 mg tablet TAKE TWO TABLETS BY MOUTH THREE TIMES A DAY active Not Available Not Available No t Available spironolact one 25 mg tablet TAKE ONE TABLET BY MOUTH EVERY DAY active Not Available Not Available No t Available carvedilol 3.125 mg tablet TAKE ONE TABLET BY MOUTH TWICE A DAY WITH MEALS active Not Available Not Available No t Available warfarin 4 mg tablet active Not Available Not Available No t Available verapamil ER 180 mg 24 hr capsule,ext ended release TAKE ONE CAPSULE BY MOUTH EVERY DAY active Not Available Not Available No t Available cyanocobala min (vit B-12) 1,000 mcg/mL injection solution ADMINISTE R 1 ML UNDER THE SKIN ONCE A MONTH 01/24 completed Not Available Not Available Not Available losartan 25 mg tablet TAKE ONE TABLET BY MOUTH TWICE A DAY - TAKE WITH THE 50MG TABLET 01/24 completed Not Available Not Available Not Available docusate sodium 100 mg capsule TAKE ONE CAPSULE BY MOUTH EVERY DAY NEEDED active Not Available Not Available No t Available gabapentin 300 mg capsule active Not Available Not Available Not Available Levoxyl 112 mcg tablet active Not Available Not Available N ot Available doxycycline hyclate 100 mg tablet TAKE ONE TABLET BY MOUTH TWICE A DAY FOR 10 DAYS 10/08 completed Not Available Not Available Not Available oxycodone 5 mg tablet TAKE ONE TABLET BY MOUTH EVERY 4 HOURS NEEDED active Not Available Not Available No t Available enoxaparin 60 mg/0.6 mL subcutaneou s syringe INJECT 60MG 1 SYRINGEFU L) UNDER THE SKIN TWO TIMES A DAY DIRECTED active Not Available Not Available No t Available bupropion HCl XL 300 mg 24 hr tablet, extended release active Not Available Not Available Not Available Flovent HFA 110 mcg/actuati on aerosol inhaler INHALE TWO PUFFS BY MOUTH TWICE A DAY 01/24 completed Not Available Not Available Not Available iron active Not Available Not Availa ble Not Available Bactrim Bactrim 400-80MG Tablet 04/13 completed Statu s: 'Disc ontin ued'; Not Available Not Available Not Available Dyazide Dyazide 37.5-25MG Capsule once a day 10/08 completed Statu s: 'Curr ent'; Not Available Not Available Not Available BD Integra Syringe 3 mL 25 gauge x 1 USE 1 SYRINGE ONCE A MONTH DIRECTED 10/08 completed Not Available Not Available Not Available oxycodone HCl-oxycodo ne-ASA as directed 1 TABLET Q 4 HOURS PRN PAIN DO NOT DRIVE WHILE TAKING THIS MEDICATIO N 10/08 completed Statu s: 'Curr ent'; Not Available Not Available Not Available Zyrtec 10 mg capsule Take by oral route. active Not Available Not Available No t Available Vitals Date Recorded Body height Body mass index (BMI) Body weight Provider Name and Address Organization Details Last Updated DateTime 05/15/2024 154.94 cm 24.6 kg/m2 33466.01 g BENEDICT POOLE [facility] 05/15/2024 11:14:14 Social History Question Answer Notes LastModified by Organizat ion Details LastModified Time Tobacco Smoking Status Former Smoker BENEDICT lucero [facility] 01/22/2024 09:47:51 How Many Times Per Week Do You Consume Alcohol? Less Than 1 Time Per Week Information not available 01/22/2024 Do You Or Have You Ever Used E-cigarettes Or Vape? Never Used Electronic Cigarettes Information not available 01/22/2024 When Did You Quit Smoking? 16+yearssincel marium Information not available 01/22/2024 What Is Your Relationship Status? Information not available 01/22/2024 Do You Use Any Illicit Or Recreational Drugs? No Information not available 01/22/2024 Do You Or Have You Ever Used Any Other Forms Of Tobacco Or Nicotine? No Information not available 01/22/2024 Sex: Unknown Functional Status None recorded. Mental Status None recorded. Family History Nothing Reported. Medical History Condition Response Allergies/Hayfever Y Coronary Artery Disease N Anxiety/Depression N Breathing or lung disorders N Emphysema N Nerve Disorders Y Thyroid Problems Y COPD N Pacemaker N Anemia N Kidney/Bladder Problems N Vascular Disease N Heart Trouble Y Heart Attack ([place]) N Gastrointestinal Disease N Cholesterol Y Diabetes N Autoimmune disease N Bleeding Disorder N Orthotics N Arthritis Y Seizures/Epilepsy N Blood Clot N AIDS/HIV N Congestive Heart Failure (CHF) N Acid Reflux (GERD) Y Cancer Y Stroke N Asthma N Circulation Problems N Peripheral Vascular Disease N Sleep Apnea N Hepatitis N Heart Disease N Rheumatoid Arthritis N Arrhythmia N Pulmonary Embolism N Headaches N Fibromyalgia N Hypertension Y Osteoporosis Y Gynecological HistoryNo gynecological history recorded. Obstetrics History GPAL:G 0 P 0 0 0 0 Past Encounters Encounter ID Performer Location Encounter Start Date Encounter Closed Date Diagnosis/Indication Diagnosis SNOMED-CT Code Diagnosis ICD10 Code Diagnosis Note [id number] MD Dilan Douglass 2[address] [place] [address] 10/09/2023 13:24:48 10/28/2023 08:15:35 Osteoarthritis of left glenohumeral joint 2583947242 254822 M19.220 [id number] MD Dilan Douglass [facility] [address] [place] [address] 01/30/2024 15:39:45 02/20/2024 13:44:22 Osteoarthritis of joint of left shoulder region 5641689095 39689 M19.356 [id number] Shoshana Moreno MD [place] [address] [place] [address] 02/21/2024 07:48:14 03/17/2024 07:52:02 History of reverse prosthetic total arthroplasty of left shoulder 9708342276 1512316 Z96.488 [id number] CARINE Gonzalez [address] [place] [address] 03/13/2024 09:00:09 03/26/2024 15:25:37 Pain in elbow 38653885 M25.423 [id number] MD [facility] [address] [place] [address] 03/17/2024 14:34:13 03/17/2024 15:40:01 Aftercare [id number] Z47.1 Z96.422 [id number] CARINE Stein[place] 3rd floor [address] [place] [address] 03/19/2024 13:54:45 04/18/2024 07:31:09 Postoperative visit [id number] Z48.89 [id number] Carri Wing, PT [facility] [address] [place] [address] 03/20/2024 08:53:18 03/20/2024 09:31:09 Aftercare [id number] Z47.1 Z96.822 [id number] Carri Wing, PT [facility] [address] [place] [address] 03/23/2024 12:18:02 03/23/2024 12:57:30 Aftercare [id number] Z47.1 Z96.121 [id number] Carri Wing, PT [facility] [address] [place] [address] 03/25/2024 10:57:22 03/25/2024 12:07:55 Aftercare [id number] Z47.1 Z96.237 [id number] Carri Wing, PT [facility] [address] [place] [address] 03/30/2024 13:20:50 03/30/2024 14:43:04 Aftercare [id number] Z47.1 Z96.269 [id number] Carri Wing, PT [facility] [address] [place] [address] 04/07/2024 09:55:05 04/07/2024 10:39:11 Aftercare [id number] Z47.1 Z96.569 [id number] Carri Wing, PT [facility] [address] [place] [address] 04/09/2024 10:25:13 04/09/2024 11:21:54 Aftercare [id number] Z47.1 Z96.018 [id number] Carri Wing, PT [facility] [address] [place] [address] 04/14/2024 10:58:34 04/14/2024 11:33:35 Aftercare [id number] Z47.1 Z96.276 [id number] Carri Wing, PT [facility] [address] [place] [address] 04/16/2024 10:09:37 04/16/2024 11:14:18 Aftercare [id number] Z47.1 Z96.632 [id number] [facility]ana [facility]no [facility] [address] [place] [address] 04/21/2024 10:17:28 04/21/2024 11:03:53 Aftercare [id number] Z47.1 Z96.619 [id number] Carrijn Cm, PT [facility] [address] [place] [address] 04/23/2024 13:38:48 04/23/2024 14:45:06 Aftercare [id number] Z47.1 Z96.051 [id number] Carri Wing, PT [facility] [address] [place] [address] 04/28/2024 11:00:24 04/30/2024 06:52:20 Aftercare [id number] Z47.1 Z96.619 [id number] Nile Trinh, PT [facility] [address] [place] [address] 04/30/2024 09:24:02 04/30/2024 10:21:06 Aftercare [id number] Z47.1 Z96.495 [id number] Favio Carr , PT [facility] [address] [place] [address] 05/05/2024 09:56:38 05/05/2024 10:19:02 Aftercare [id number] Z47.1 Z96.341 [id number] MD DAVID Douglass [address] [place] [address] 05/15/2024 10:25:02 05/27/2024 10:56:51 History of reverse prosthetic total arthroplasty of left shoulder [id number] Z96.126 [id number] Carri Cm, PT DAV[facility] - [facility] [address] [place] [address] 05/14/2024 10:51:02 05/14/2024 11:46:51 Aftercare [id number] Z47.1 Z96.176 [id number] Carri Wing, PT DAV[facility] - [facility] [address] [place] [address] 05/21/2024 10:20:46 05/21/2024 11:48:31 Aftercare [id number] Z47.1 Z96.612 Health Concerns Section Related Observation LastModified by Organization Detai ls LastModified Time None Recorded Concern Status LastModified by Organization Details LastModified Time None Recorded Advance Directives Directive None Recorded Payers Encounter Date Sequence Insurance Name Policy Number Policy Spears Covered Member ID Spears Member ID Guarantor Name 04/30/2024 1 [place] [employer] Tae Dinh Roxanne [id number] Tea Dinh Roxanne 04/30/2024 2 WPS - FOR LIFE (MEDICARE SUPPLEMENT) Tea Dinh Roxanne [id number] Tea Dinh Roxanne 05/05/2024 1 [place] [facility] GOVERNMENT SERVICES Tea Dinh Roxanne [id number] Tea Dinh Roxanne 05/05/2024 2 WPS - FOR LIFE (MEDICARE SUPPLEMENT) eTa Dinh Roxanne [id number] Tea Dnih Roxanne 05/14/2024 1 [place] [employer] Tea Dinh Roxanne [id number] Tea Dinh Roxanne 05/14/2024 2 WPS - FOR LIFE (MEDICARE SUPPLEMENT) Tea Dinh Roxanne [id number] Tea Dinh Roxanne 05/15/2024 1 [place] [employer] Tea Dinh Roxanne [id number] Tea Dinh Roxanne 05/15/2024 2 WPS - FOR LIFE (MEDICARE SUPPLEMENT) Tea Garciaer [id number] Tea Dinh Roxanne 05/21/2024 1 [place] [facility] GOVERNMENT SERVICES Tea Oliveira [id number] Tea Oliveira 05/21/2024 2 WPS - FOR LIFE (MEDICARE SUPPLEMENT) Tea Oliveira [id number] Tea Oliveira Notes Date Note Type Note Provider Name and Address Organization Details Recorded Time 04/30/2024 text/html Pt states that s he still isn't reaching for anything in cupboards because she's worried she's going to drop it. She reports no pain at the left shoulder in the last couple of days. She states that she wasn't as good about her HEP in the last couple of days due to being busy with [employer]. Nile Trinh, PT [address], [place], [address], [facility] 04/30/2024 10:17:17 05/05/2024 text/html Pt states that s he was at her [employer] hockey game this weekend and her arm was a little sore after cheering and constantly raising her arms. Marianela Arce, LAWN CARE SPECIALIST [address], [place], [address], [facility] 05/11/2024 08:17:52 05/14/2024 text/html Pt states c/c is a sensation of tightness in the shoulder when she does a lot. Reports 3/10 at most briefly in the left shoulder. Denies any more episodes of zings of pain like she had those few times a few weeks ago. Carri Cm, PT [address], [place], [address], [facility] 05/14/2024 11:32:14 05/15/2024 text/html Surgery: Left reverse total shoulder arthroplasty, 02/04/2024 Interval History: Tea returns today in follow-up now 3 months out from surgery as above. Doing well. Continues in PT, making good progress with range of motion. Denies pain. No issues with incision. No numbness or tingling in the arm or hand. Past family, medical, social history and review of systems have been reviewed and updated on the medical history sheet saved to the patient's chart. A 12-point review of systems is negative x12 except as noted above and/or on the medical history sheet. Examination: Pleasant 73-year-old woman in no acute distress. On exam of the Left upper extremity, incision is healing nicely. Able to maintain the shoulder abducted against gravity without difficulty. Active forward elevation 165, passive 165. Passive ER 60 with negative ER lag. IR to L5. Sensation intact in an axillary distribution. Fires EPL, FPL and intrinsics. Hand is warm and well perfused. Imaginv of the Left shoulder ordered and obtained at [facility] today were reviewed during the visit. These demonstrate a reduced glenohumeral joint. Central post and all peripheral screws have excellent purchase within the glenoid vault. Slight radiolucency between baseplate and chippewa-cree glenoid, no definite change from prior. No evidence for scapular fracture, glenoid notching, or component loosening. 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 Doing well. Plan: Will have the patient finish out the prescribed PT and transition to HEP. Encouraged to continue with stretching exercises, as motion will continue to improve for up to a year after surgery if we keep working at it. Now at 3 months may start in with some light strengthening, though would keep weight 5-10 lbs until after 6-month recheck. May also start to weightbear through the arm as needed and work on motion behind the back in a more concerted manner. Will plan for a return visit in another 3 months for next recheck with new xrays, and then again for an annual visit, yearly thereafter. Encouraged to call sooner, however, with any new issues or concerns that may arise. [employer] speech recognition mock up maker software was used to create portions of this document. An attempt at proofreading has been made to minimize errors. Please call for corrections. Shoshana Moreno MD [address] [facility] [address] [facility], [place], [place], [id number], [facility] 05/15/2024 12:03:25 05/21/2024 text/html Pt states that s he gets soreness in the shoulder when doing repetitive activities. Marianela Arce, LAWN CARE SPECIALIST [address], [place], [id number], [facility] 05/21/2024 11:23:10 OBGyn Episode No OBEpisode recorded.
--- NOTE | 2024-06-24 09:21 | MHC.OFFVIS ---
Vital Signs 06/24/24 09:25 Height 5 ft 1 in Weight 136 lb BMI 25.7 BP 140/78 H Blood Pressure Location Rt brachial Position Sitting Pulse 65 Pulse Source Pulse Oximeter Pulse Oximetry (%) 99 Oxygen Delivery Method Room Air Intake Visit Reasons: ENP-Ataxia/decrease balance Intake Note: referred by [facility] for ataxia. Allergies chlorthalidone Allergy (Severe, Verified 06/24/24 09:26) other HPI Comments Details: 73y/o right handed female comes for neurological evaluation of gait and balance issues. In May 2023 she was on chlorthalidone and antibiotics for a sinus infection. she felt very weak and could not stand so she went to ER. She was found to have low sodium - 105 . she was admitted in ICU for 3 days and in hospital for additional week. Her sodium improved and she was transferred to rehab as she had gait difficulty and tremors, speech and cognitive issues.she was in rehab for about 3 weeks and then she had had PT OT at home for 2 months . her symptoms resolved and is back to baseline. when her primary care saw her in his office during this time, she had difficulty with FN , tandem walk etc so he reffered to neurology. 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 B12 deficiency Low iron Osteoporosis Allergic rhinitis Hyperlipidemia TIA (transient ischemic attack) Thoracic aortic aneurysm Aortic valvar stenosis Osteoarthritis HTN (hypertension) Cervical radiculopathy H/O esophageal reflux Anxiety Panic attack Surgical History S/p reverse total shoulder arthroplasty H/O endoscopy History of left knee replacement History of arthroscopy of right shoulder S/P thyroid biopsy Aortic valve replaced H/O breast biopsy H/O cervical discectomy H/O hemorrhoidectomy History of carpal tunnel release Family History Father Lymphoma Diverticulosis ETOH abuse Heart disease Mother Endometrial ca Spinal stenosis HTN (hypertension) Kyphosis Social History Alcohol intake: current Patient Tobacco Use Status: Former Tobacco user Physical Exam Vital Signs: Last Vital Signs Pulse 65 06/24/24 09:25 BP 140/78 H 06/24/24 09:25 Pulse Ox 99 06/24/24 09:25 Oxygen Delivery Method Room Air 06/24/24 09:25 BMI result Body Mass Index 25.7 Const General: cooperative, healthy appearing and comfortable Nutritional Appearance: average body habitus Orientation/consciousness: patient oriented x3 Limitations: no limitations Eyes Pupils: Equal, round and reactive pupils present Neuro General: patient oriented x3, gait normal, tone normal, moves all extremities and no focal motor deficits Cranial nerves: Yes Facial sensation intact/muscles of mastication intact, Yes Equal, round and reactive pupils present, Yes Nystagmus not present, Yes Normal facial strength present, Yes Midline tongue present, Yes Symmetric palate elevation present and Yes Ability to bilaterally elevate shoulders present Cognition (Neuro): normal cognition Gait exam (Neuro): Normal gait present Motor exam (neuro): 5/5 motor strength present throughout and Normal motor muscle tone present throughout Deep tendon reflexes (DTR's): Right triceps reflex intensity grade: 1+, Left triceps reflex intensity grade: 1+, Rt Biceps (C5, C6): 1+, Left biceps reflex intensity grade: 1+, Right brachioradialis reflex intensity grade: 1+, Left brachioradialis reflex intensity grade: 1+, Right patellar reflex intensity grade: 1+ and Left patellar reflex intensity grade: 1+ Coordination: [id number] test normal, [id number] test normal and tandem gait normal Assessment & Plan Assessment & Plan (1) Neurologic ambulation disorder: Comment: ataxia and tremors likely related to her hyponateremia - the symptoms resolved now Code(s): R26.9 - Unspecified abnormalities of gait and mobility Category: Medical Plan Her neuro exam was normal today Her symptoms last year were related to hyonatremia Will review MRI F/U as needed Coding Level of Care Code New Pt Level 4 (49117) Diagnoses Neurologic ambulation disorder R26.9
[2024-06-24 09:25] VITALS: BP 140/78; PULSE 65; O2SAT 99; BMI 25.7
== END 2024-06-24 16:23 | disposition home or self-care (01) ==
PROVIDERS: PCP Internal Medicine; Visit Provider Psychiatry & Neurology Neurology
DX: R26.9 Unspecified abnormalities of gait and mobility (principal)
CPT/HCPCS: 99204

== ENCOUNTER → 2024-06-24 08:58 | Outpatient (BNVA) | payer MEDICARE, OTHER, SELFPAY | PROVIDERS: PCP Internal Medicine; Visit Provider Psychiatry & Neurology Neurology | DX: R26.9 Unspecified abnormalities of gait and mobility (principal) | CPT/HCPCS: 99202 ==